=== PATIENT | male | born 2000 | race Caucasian/White ===

== ENCOUNTER 2024-06-08 19:09 | Emergency (ER) | payer SELFPAY ==
[~2024-06-08] VITALS: Ht 182.9 cm; Wt 64.0 kg
[2024-06-08 19:27] VITALS: PULSE 65; RESP 16; TEMP 98.6; O2SAT 99
[2024-06-08] MEDS: TETANUS/DIPHTHERIA TOX ADULT 0.5 ML SYR IM ONE (20:27)
[2024-06-08] MEDS: LIDOCAINE 1% W/EPINEPHRINE 20 ML VIAL INJ ONE (20:27)
[2024-06-08] MEDS: BACITRACIN ZINC 0.9GM TP ONE (20:42)
[2024-06-08] MEDS ORDERED: CEPHALEXIN500 MG PO (20:49)
== END 2024-06-08 20:55 | disposition home or self-care (01) ==
LOC: ER 19:27
DX: S01.411A Laceration without foreign body of right cheek and temporomandibular area, initial encounter (principal); W22.09XA Striking against other stationary object, initial encounter; Y92.89 Other specified places as the place of occurrence of the external cause
CPT/HCPCS: 70140; 90471; 90714; 99283